=== PATIENT | male | born 1945 | race Caucasian/White ===

== ENCOUNTER → 2020-10-23 18:03 | Outpatient (CLI) | payer BC, SELFPAY ==
--- NOTE | 2020-10-23 | DI.MRI.S_ITS ---
PROCEDURE: MR KNEE RT WO CON INDICATIONS: Effusion, right knee TECHNIQUE: Noncontrast sagittal PD fast spin echo and T2 fast spin echo with fat saturation, sagittal 3-D FLASH with fat saturation; coronal T1 spin echo and PD fast spin echo with fat saturation, and axial PD fast spin echo with fat saturation through the knee. COMPARISON: None. FINDINGS: Image quality: Excellent. Menisci: Linear horizontally oriented high signal intensity within the medial meniscal body and posterior horn, demonstrating inferior articular surface extension is present, indicating horizontal tearing. Lateral meniscus is intact.. Cruciate ligaments: There is mild posterior bowing of the anterior cruciate ligament which demonstrates moderate diffuse T2 signal elevation throughout its substance. Posterior cruciate ligament is intact. Medial structures: The medial collateral ligament appears intact, but demonstrates mild surrounding T2 signal elevation. Visualized portions of the pes anserinus tendons appear normal. No abnormal bursal fluid. Lateral structures: The lateral collateral ligament demonstrates mild T2 signal elevation at its femoral origin. The long and short heads of the biceps femoris tendon appear intact. The popliteus tendon appears normal. There is mild T2 signal elevation within and adjacent to the popliteus. Iliotibial band appears normal. Anterior structures: The quadriceps and patellar tendons appear intact. Patellar alignment is normal. No femoral trochlear dysplasia or ventral trochlear prominence. No edema in the infrapatellar fat pad. Bones and cartilage: There is mild, roughly 2 mm of depression of the anterior weight-bearing aspect of the lateral femoral condyle, spanning roughly 15 mm anteroposterior, with moderate ill-defined underlying STIR signal elevation. There is mild ill-defined T2 signal elevation within the lateral tibial plateau posteriorly. Moderate articular cartilage loss diffusely overlies the weight-bearing aspects of the medial femoral condyle and medial tibial plateau. Mild articular cartilage loss diffusely overlies the weight-bearing aspects of the lateral femoral condyle and lateral tibial plateau. Mild articular cartilage loss overlies the medial and lateral patellar facets. Joint space: There is a moderate knee joint effusion and a small Johnson's cyst. Normal appearing synovial plicae are incidentally noted. IMPRESSION: 1. Mildly depressed fracture of the anterior weight-bearing aspect of the lateral femoral condyle with underlying contusion. Mild contusion within the lateral tibial plateau posteriorly. 2. Partial-thickness anterior cruciate ligament tear. 3. Medial meniscal tear. 4. MCL strain. 5. Partial thickness lateral collateral ligament tear. 6. Knee joint effusion and Johnson's cyst. 7. Mild popliteus strain. Dictated by: Robert Dutta M.D. on 10/26/2020 at 8:13 Approved by: Robert Dutta M.D. on 10/26/2020 at 8:17
== END ==
PROVIDERS: Referring Provider Physician Assistant; Visit Provider Physician Assistant
DX: M25.461 Effusion, right knee (principal); S72.421A Displaced fracture of lateral condyle of right femur, initial encounter for closed fracture; S83.511A Sprain of anterior cruciate ligament of right knee, initial encounter; S83.241A Other tear of medial meniscus, current injury, right knee, initial encounter; S83.411A Sprain of medial collateral ligament of right knee, initial encounter; S83.421A Sprain of lateral collateral ligament of right knee, initial encounter; M71.21 Synovial cyst of popliteal space [Baker], right knee; S76.811A Strain of other specified muscles, fascia and tendons at thigh level, right thigh, initial encounter
CPT/HCPCS: 73721